=== PATIENT | female | born 1955 | race Caucasian/White ===

== ENCOUNTER 2021-09-08 00:17 | Inpatient (IN) | payer MEDICARE ==
--- NOTE | 2021-09-08 02:55 | ED ---
SOB HPI - General Chief Complaint: Shortness of Breath Stated Complaint: pneumonia Time Seen by Provider: 09/08/21 00:19 Source: patient, EMS Mode of arrival: EMS Limitations: no limitations - History of Present Illness Initial Comments: Aracelis a 66-year-old female history of oxygen-dependent COPD. Patient has had multiple hospitalizations out of the [facility] recently for COPD exacerbations. She was discharged on number 15th on high flow nasal cannula however she returned that evening with worsening shortness of breath, repeat labs revealed new leukocytosis and the patient was noted to have possible ALLERGIC skin. Patient was negative for COVID at that time. The patient recent cares been complicated by the fact that she is currently homeless, she's been prescribed home oxygen but has been living out of a vehicle for has been noncompliant with home oxygen - Related Data Allergies Allergy/AdvReac Type Severity Reaction Status Date / Time hydrocodone Allergy Nausea & Verified 09/08/21 00:38 Vomiting Review of Systems ROS Statement: Those systems with pertinent positive or pertinent negative responses have been documented in the HPI. ROS Other: All systems not noted in ROS Statement are negative. Past Medical History Past Medical History: COPD History of Any Multi-Drug Resistant Organisms: None Reported Additional Past Surgical History / Comment(s): bowel surgery Past Psychological History: No Psychological Hx Reported Smoking Status: Current every day smoker Past Alcohol Use History: None Reported Past Drug Use History: Marijuana General Exam - General Exam Comments Initial Comments: Physical Exam GENERAL: Appears older than stated age HENT: Normocephalic, Atraumatic. EYES: PERRL, EOMI PULMONARY: Tachypnea CARDIOVASCULAR: RRR ABDOMEN: Soft and nontender with normal bowel sounds. SKIN: Skin is clear with no lesions or rashes and otherwise unremarkable. : Deferred NEUROLOGIC: Patient is alert and oriented x3. Moving all extremities spontaneously MUSCULOSKELETAL: Normal extremities with adequate strength and full range of motion. No lower extremity swelling or edema. No calf tenderness. PSYCHIATRIC: Normal psychiatric evaluation. Limitations: no limitations Course Vital Signs 09/08/21 09/08/21 00:22 03:56 Temperature 98.1 F Pulse Rate 90 75 Respiratory 20 19 Rate Blood Pressure 144/91 126/63 O2 Sat by Pulse 91 L 93 L Oximetry Medical Decision Making - Medical Decision Making Patient care was discussed with transferring physician and history was obtained from patient upon arrival Patient with a history of oxygen-dependent COPD multiple hospitalizations recently, currently on high flow oxygen 10 L for COPD exacerbation with CT evidence of pneumonia, patient received vancomycin and cefepime outpatient setting, She transferred to this facility for evaluation by pulmonology, patient care was discussed with Sheryl Ortega NP the [facility] physician group who accepts the admission, admission orders were placed Disposition Clinical Impression: Pneumonia, Chronic hypercapnic respiratory failure, COPD (chronic obstructive pulmonary disease), Leukocytosis Disposition: ADMITTED IP TO THIS HOSP Condition: Serious Is patient prescribed a controlled substance at d/c from ED?: No Referrals: Don Mendoza DO [Primary Care Provider] - 1-2 days
[2021-09-08] MEDS ORDERED: ACETAMINOPHEN TAB 325 MG TAB PO PRN (04:36)
[2021-09-08] MEDS ORDERED: IBUPROFEN 400 MG TAB PO PRN (04:36)
[2021-09-08] MEDS ORDERED: NALOXONE 0.4 MG/ML 1 ML VIAL IV PRN (04:36)
[2021-09-08] MEDS ORDERED: MELATONIN 3 MG TABLET PO PRN (08:47)
--- NOTE | 2021-09-08 08:57 | P.HPIM ---
History of Present Illness This is a pleasant 66 years old female with past medical history of COPD not on home medication. Presents because of dyspnea [facility]. She is on 10 L oxygen via high flow nasal cannula when transferred. PCP is Dr. Mendoza Patient with a history of oxygen-dependent COPD multiple hospitalizations recently, currently on high flow oxygen 10 L for COPD exacerbation with CT evidence of pneumonia, patient received antibiotic in outpatient setting, homeless, she's been prescribed home oxygen but has been living out of a vehicle for has been noncompliant with home oxygen Patient is lying in bed does not look in respiratory distress but she is on high flow oxygen at 2 L/m, no significant tachypnea while at rest, she is coughing with occasional phlegm. She complains earlier from central chest tenderness but now she is chest pain-free No diarrhea abdominal pain or vomiting. No urinary complaints. No headache or weakness or dizziness. She has good appetite She used to smoke half pack per day and she just quit recently. She denies alcohol. 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 As per transfer paper patient was discharge from [facility] to [facility] but she sent back to the emergency room of [facility] at the same day for worsening dyspnea. As per [facility] patient saturates 86-88% on room air. She was saturating well on 6 L but she was transitioned to high flow nasal cannula due to increased work of breathing and oxygen requirements. at [facility] she received IV Solu-Medrol, magnesium, February of this and albuterol treatment patient was showing mild improvement and she was doing well on 6 L NC but was transitioned to high flow nasal cannula due to increased work of breathing and oxygen requirements per records. to CTA of the chest done on 09/07/2021 report states no acute PE, diffuse tree-in-bud pattern opacity with left lower lobe consolidation Also patient was given IV Levaquin and Zithromax. Patient was admitted with COPD exacerbation and hypoxia and later on transferred to [facility] Currently vitals stable at course except for hypoxia she is on 10 L high flow nasal cannula was saturating 93% A EKG showed normal sinus rhythm at [address]-T changes, and QTC 413 In reviewing [facility] transferring paper: Labs showed sodium 130, potassium 4.8, creatinine 0.6, liver enzymes did not 6 difficult currently elevated, AST normal 21 and ALT slightly up at 44, total bilirubin 0.4, albumin 3.0. GFR is 1:30. Troponin less than 0.012. Lactic acid 2.1, magnesium 2.1. WBC 9.7, hemoglobin 11.3, platelets 275. D-dimer slightly elevated 1.2. However repeat WBC from 09/07 increased to 26.4. Hemoglobin 12.7 INR is 0.9 ABG showing pH of 7.5, the CO2 50 which is within the reference range and high P O2 at 67.9. Which was done and 6 L nasal cannula Review of Systems CONSTITUTIONAL: No fever, no malaise, no fatigue. HEENT: No recent visual problems or hearing problems. Denied any sore throat. CARDIOVASCULAR: No orthopnea, PND, no palpitations, no syncope. PULMONARY: No chest wall tenderness, no hemoptysis. GASTROINTESTINAL: No diarrhea, no nausea, no vomiting, no abdominal pain. Normoactive bowel sounds. NEUROLOGICAL: No headaches, no weakness, no numbness. HEMATOLOGICAL: Denies any bleeding or petechiae. GENITOURINARY: Denies any burning micturition, frequency, or urgency. MUSCULOSKELETAL/RHEUMATOLOGICAL: Denies any joint pain, swelling, or any muscle pain. ENDOCRINE: Denies any polyuria or polydipsia. Past Medical History Past Medical History: COPD History of Any Multi-Drug Resistant Organisms: None Reported Additional Past Surgical History / Comment(s): bowel surgery Past Anesthesia/Blood Transfusion Reactions: No Reported Reaction Past Psychological History: No Psychological Hx Reported Smoking Status: Former smoker Past Alcohol Use History: None Reported Past Drug Use History: Marijuana Medications and Allergies Allergies Allergy/AdvReac Type Severity Reaction Status Date / Time hydrocodone Allergy Nausea & Verified 09/08/21 00:38 Vomiting Physical Exam Vitals: Vital Signs Temp Pulse Resp BP Pulse Ox 09/08/21 03:56 75 19 126/63 93 L 09/08/21 00:22 98.1 F 90 20 144/91 91 L Intake and Output 09/07/21 09/07/21 09/08/21 14:59 22:59 06:59 Other: Weight 54.431 kg -GENERAL: The patient is alert and oriented x3, not in any acute distress. thin built HEENT: Pupils are round and equally reacting to light. EOMI. No scleral icterus. No conjunctival pallor. Normocephalic, atraumatic. No pharyngeal erythema. No thyromegaly. CARDIOVASCULAR: S1 and S2 present. No murmurs, rubs, or gallops. -PULMONARY: Chest is clear to auscultation, B/L scattered wheezing with decreased air entry. ABDOMEN: Soft, nontender, nondistended, normoactive bowel sounds. No palpable organomegaly. MUSCULOSKELETAL: No joint swelling or deformity. EXTREMITIES: No cyanosis, clubbing, or pedal edema. NEUROLOGICAL: Gross neurological examination did not reveal any focal deficits. SKIN: No rashes. No petechiae Thrombosis Risk Factor Assmnt - Choose All That Apply Any of the Below Risk Factors Present?: Yes Each Factor Represents 1 point: Abnormal pulmonary function (COPD) Other Risk Factors: Yes Each Risk Factor Represents 2 Points: Age 61-74 years Thrombosis Risk Factor Assessment Total Risk Factor Score: 3 Thrombosis Risk Factor Assessment Level: Moderate Risk Assessment and Plan Assessment: Left lower lobe hospital-acquired pneumonia with diffuse tree-in-bud pattern Acute COPD exacerbation Acute hypoxic respiratory failure [id number] protein calorie malnutrition. Substance abuse with marijuana Plan: This is a pleasant 66 years old female who presents with COPD, pneumonia Continue with IV Solu-Medrol Start Zosyn Sent sputum culture of possible Pulmonary consult Biological Aide consult check procalcitonin and BNP Labs and medication were reviewed.. Continue same treatment. Continue with symptomatic treatment. Resume home medication. Monitor lytes and vitals. DVT and GI prophylaxis. Further recommendations depends on the clinical course of the patient DVT prophylaxis: Subcutaneous heparin GI Prophylaxis: Pepcid PT/OT: Pending Prognosis is guarded
[2021-09-08 10:15] LABS: Basophils % (A) 0 %; Eosinophils % (A) 0 %; HCT 36.4 % (34.0-46.0); HGB 11.3 gm/dL (11.4-16.0); Hypochromasia Slight; Lymphocytes # (A) 0.6 k/uL (1.0-4.8); Lymphocytes % (A) 2 %; MCH 29.3 pg (25.0-35.0); MCHC 31.1 g/dL (31.0-37.0); MCV 94.4 fL (80.0-100.0); Mean Platelet Volume 7.3; Monocytes # (A) 0.6 k/uL (0-1.0); Monocytes % (A) 2 %; Neutrophils # (A) 25.6 k/uL (1.3-7.7); Neutrophils % (A) 95 %; Platelet Count 308 k/uL (150-450); RBC 3.86 m/uL (3.80-5.40); RDW 12.9 % (11.5-15.5)
[2021-09-08 10:22] LABS: ALT 35 U/L (4-34); AST 22 U/L (14-36); African American GFR (CKD) >90 (>60 ml/min/1.73 sqM); Albumin 2.6 g/dL (3.5-5.0); Albumin/Globulin Ratio 1.1; Alkaline Phosphatase 83 U/L (38-126); Blood Urea Nitrogen 20 mg/dL (7-17); Calcium 8.5 mg/dL (8.4-10.2); Chloride 85 mmol/L (98-107); Globulin 2.3 g/dL; Glucose 93 mg/dL (74-99); Magnesium 2.2 mg/dL (1.6-2.3); Non-African American GFR(CKD) >90 (>60 ml/min/1.73 sqM); Potassium 4.7 mmol/L (3.5-5.1); Sodium 129 mmol/L (137-145); Total Bilirubin 0.3 mg/dL (0.2-1.3); Total Protein 4.9 g/dL (6.3-8.2)
[2021-09-08 10:28] LABS: Anion Gap 0 mmol/L
[2021-09-08 10:33] LABS: Carbon Dioxide 44 mmol/L (22-30)
[2021-09-08] MEDS: FAMOTIDINE 20 MG/2 ML VIAL IV SCH ×2 (10:51→21:28)
[2021-09-08] MEDS: HEPARIN SODIUM,PORCINE/PF 5,000 UNIT/0.5 ML SYRINGE SQ SCH ×2 (10:51→21:28)
--- NOTE | 2021-09-08 10:52 | CDI ---
Documentation Clarification Form Date: 09/08/2021 10:34:24 AM From: Jammie Balderas RN CCDS Admit Date: 09/08/2021 04:36:00 AM Patient Name: Aracelis Estrada Visit Number: [id number] Discharge Date: ATTENTION: The Clinical Documentation Specialists (CDI) and [facility] Coding Staff appreciate your assistance in clarifying documentation. Please respond to the clarification below the line at the bottom and electronically sign. The CDI & [facility] Coding staff will review the response and follow-up if needed. Please note: Queries are made part of the Legal Health Record. If you have any questions, please contact the author of this message via ITS. Dr. [facility] acquired pneumonia is documented 09/08, H&P. Additional clarification regarding the type of pneumonia is requested. History/Risk Factors: 66-year-old female presents to the ED as a transfer from [facility] for worsening oxygen needs and increased work of breathing. Medical history: COPD, Non- compliant, Multiple hospitalizations recently and oxygen dependent. 09/08, H&P. Clinical Indicators: 09/08, H&P: Left lower lobe hospital acquired pneumonia with diffuse tree in bud pattern. WBC 09/07, H&P: 26.4, CTA 09/07 H&P: No acute PE, diffuse tree in bud pattern opacity with left lower lobe consolidation. Lung/Breathing assessment 09/08, H&P: Chest is clear to auscultation, B/L scattered wheezing with decreased air entry. Treatment: 09/08 Solumedrol 40mg IV Q8H Antibiotics: Levaquin IV AND Zithromax at [facility] (09/08, H&P), 09/08 Zosyn 3.375mg IVPB Q8H O2: 09/08 10L High Flow Oxygen. Breathing Tx: 09/08 Duoneb 0.5mg -3mg/ 3ml soln RT QID PRN; Symbicort 160-4.5 Mcg Inhaler 2puff inhalation RT BID. Please clarify the type of pneumonia, if known: [ ] Gram Negative Bacterial Pneumonia [ ] Bacterial Pneumonia, specify causal organism (if known) [ ] Other, please specify [ ] Unable to determine Suspected gram-negative pneumonia (Template Last Revised: November 2020) MTDD
[2021-09-08 11:31] LABS: Glucose,Whole Blood 81 mg/dL (75-99)
[2021-09-08] MEDS: INSULIN ASPART (NovoLOG) 100 UNIT/ML VIAL SQ SCH ×3 (11:52→21:28)
[2021-09-08 11:57] VITALS: BMI 17.7
[2021-09-08] MEDS: methylPREDNISolone SOD SUCCI 40 MG/ML 1 ML VIAL IV SCH ×2 (12:03→17:03)
[2021-09-08] MEDS ORDERED: INSULIN ASPART (NovoLOG) 100 UNIT/ML VIAL SQ SCH (12:30)
[2021-09-08] MEDS: IPRATROPIUM-ALBUTEROL 3 ML NEB INHALATION PRN ×2 (16:11→20:23)
[2021-09-08 16:35] LABS: Glucose,Whole Blood 136 mg/dL (75-99)
[2021-09-08] MEDS: PIPERACILLIN-TAZOBACTAM 3.375 GM in SODIUM CHLORIDE 0.9% 100 ML IVPB SCH (17:02)
[2021-09-08 20:13] LABS: Glucose,Whole Blood 155 mg/dL (75-99)
[2021-09-08] MEDS: SYMBICORT 160-4.5 MCG INHALER INHALATION SCH (20:23)
[2021-09-08] MEDS ORDERED: INSULIN DETEMIR (LEVEMIR) 100 UNIT/ML SYR SQ SCH (21:00)
[2021-09-09] MEDS: methylPREDNISolone SOD SUCCI 40 MG/ML 1 ML VIAL IV SCH ×2 (00:30→08:53)
[2021-09-09] MEDS: PIPERACILLIN-TAZOBACTAM 3.375 GM in SODIUM CHLORIDE 0.9% 100 ML IVPB SCH ×3 (00:30→17:51)
[2021-09-09] MEDS: SODIUM CHLORIDE 0.9% 1,000 ML IV SCH ×2 (00:31→20:53)
[2021-09-09 07:05] LABS: Glucose,Whole Blood 119 mg/dL (75-99)
[2021-09-09] MEDS: SYMBICORT 160-4.5 MCG INHALER INHALATION SCH (07:47)
[2021-09-09] MEDS: INSULIN ASPART (NovoLOG) 100 UNIT/ML VIAL SQ SCH ×4 (08:12→20:45)
[2021-09-09] MEDS: HEPARIN SODIUM,PORCINE/PF 5,000 UNIT/0.5 ML SYRINGE SQ SCH ×2 (08:53→20:46)
[2021-09-09] MEDS: FAMOTIDINE 20 MG/2 ML VIAL IV SCH ×2 (08:53→20:45)
[2021-09-09 09:14] LABS: Basophils % (A) 0 %; Eosinophils % (A) 0 %; HCT 40.2 % (34.0-46.0); HGB 12.4 gm/dL (11.4-16.0); Hypochromasia Moderate; Lymphocytes # (A) 0.3 k/uL (1.0-4.8); Lymphocytes % (A) 2 %; MCH 29.8 pg (25.0-35.0); MCHC 30.9 g/dL (31.0-37.0); MCV 96.6 fL (80.0-100.0); Mean Platelet Volume 7.3; Monocytes # (A) 0.4 k/uL (0-1.0); Monocytes % (A) 2 %; Neutrophils % (A) 96 %; Platelet Count 346 k/uL (150-450); RBC 4.17 m/uL (3.80-5.40); RDW 13.5 % (11.5-15.5); WBC 18.8 k/uL (3.8-10.6)
[2021-09-09 09:21] LABS: African American GFR (CKD) >90 (>60 ml/min/1.73 sqM); Blood Urea Nitrogen 23 mg/dL (7-17); Calcium 9.1 mg/dL (8.4-10.2); Chloride 87 mmol/L (98-107); Glucose 155 mg/dL (74-99); Magnesium 2.3 mg/dL (1.6-2.3); Non-African American GFR(CKD) >90 (>60 ml/min/1.73 sqM); Potassium 4.6 mmol/L (3.5-5.1); Sodium 130 mmol/L (137-145)
[2021-09-09 09:27] LABS: Anion Gap 5 mmol/L
[2021-09-09 09:32] LABS: Carbon Dioxide 38 mmol/L (22-30)
[2021-09-09] MEDS: IPRATROPIUM-ALBUTEROL 3 ML NEB INHALATION PRN ×3 (11:49→21:05)
[2021-09-09 11:52] LABS: Glucose,Whole Blood 126 mg/dL (75-99)
[2021-09-09] MEDS: methylPREDNISolone SOD SUCCI 125 MG/2 ML VIAL IV SCH ×2 (12:38→17:50)
--- NOTE | 2021-09-09 14:45 | P.CNPUL ---
History of Present Illness Consult date: 09/09/21 Requesting physician: Nikita Llamas Reason for consult: dyspnea, cough, COPD, hypoxemia, pneumonia, abnormal CXR/CT Chief complaint: Shortness of breath. History of present illness: Pulmonary/critical care consult dated 09/09/2021. 66-year-old female, with a history of COPD. The patient's been smoking for more than 50 years at about a pack a day. She also smokes marijuana from time to time, and in the past has a crack. The patient tells me that she has been hospitalized at [facility] up in [facility], for about a week or so. They ended up shifting her down here, because she was not really improving. The patient is currently on 10 L high flow O2. The patient is receiving antibiotic. Her primary care physician is Dr. Mendoza. The patient states that her only medical problem is that of COPD. She is not a particularly good historian. She states that when the weather changed, that is when her lung disease became much more active. Her white count is 18.8, hemoglobin 12.4, hematocrit 40.2, and platelet count 346,000. Sodium 130, potassium 4.6, chloride 87, CO2 38, anion gap 5, BUN 23, and creatinine 0.50. Her pro- calcitonin level is 0.12. There is no chest x-ray on this patient. The patient is homeless. She apparently lives out of her van. Review of Systems REVIEW OF SYSTEMS: CONSTITUTIONAL: [Negative.] NEUROLOGIC: [ Negative.] HEENT: [ Negative.] CARDIAC: [Negative.] PULMONARY: Shortness of breath, cough, chest congestion. GI: [Negative.] : [Negative.] RHEUMATOLOGIC: [ Negative.] IMMUNOLOGIC: [ Negative.] ENDOCRINE: [Negative. ] DERMATOLOGIC: [Negative.] Past Medical History Past Medical History: COPD History of Any Multi-Drug Resistant Organisms: None Reported Additional Past Surgical History / Comment(s): bowel surgery Past Anesthesia/Blood Transfusion Reactions: No Reported Reaction Past Psychological History: No Psychological Hx Reported Smoking Status: Former smoker Past Alcohol Use History: None Reported Past Drug Use History: Marijuana Medications and Allergies Home Medications Medication Instructions Recorded Confirmed Type Albuterol Sulfate [Albuterol 2 puff PO RT-Q4H PRN 09/08/21 09/08/21 History Sulfate Hfa] Budesonide-Formot 160-4.5 Mcg 2 puff INHALATION RT-BID 09/08/21 09/08/21 History [Symbicort 160-4.5 Mcg Inhaler] Levothyroxine Sodium [Synthroid] 25 mcg PO DAILY 09/08/21 09/08/21 History Losartan [Cozaar] 50 mg PO DAILY 09/08/21 09/08/21 History Allergies Allergy/AdvReac Type Severity Reaction Status Date / Time hydrocodone AdvReac Nausea & Verified 09/08/21 09:03 Vomiting Physical Exam Osteopathic Statement: *. No significant issues noted on an osteopathic structural exam other than those noted in the History and Physical/Consult. Vitals: Vital Signs Temp Pulse Pulse Resp BP Pulse Ox 09/09/21 12:00 88 09/09/21 11:50 84 09/09/21 08:00 84 09/09/21 07:53 95 09/09/21 07:47 84 09/09/21 07:12 98.1 F 85 18 130/68 96 09/09/21 01:05 97.6 F 77 15 136/71 98 09/08/21 20:51 88 09/08/21 20:42 88 09/08/21 19:34 98.0 F 84 16 155/73 94 L 09/08/21 19:23 84 16 09/08/21 16:21 88 09/08/21 16:13 84 Intake and Output 09/08/21 09/09/21 09/09/21 22:59 06:59 14:59 Intake Total 875 Balance 875 Intake: Intake, IV Titration 375 Amount Piperacillin-Tazobactam 3 375 .375 gm In Sodium Chloride 0.9% 100 ml @ 25 mls/hr IVPB Q8HR [facility] Rx# :[id number] Oral 500 Other: Voiding Method Bedside Commode # Voids 1 2 # Bowel Movements 1 1 Weight 63.1 kg Mild respiratory distress, oriented 3. The patient's saturations are 95% on 10 L high flow nasal O2. HEENT examination is grossly unremarkable. Neck supple. Full range of motion. No adenopathy thyromegaly or neck vein distention. Cardiovascular examination reveals regular rhythm rate. S1-S2 normal. No S3 or S4. No discernible murmur noted. Heart rate is 88 bpm. Heart sounds are distant. Lungs reveal inspiratory and expiratory wheezes and rhonchi. Breath sounds are equal bilaterally. No crackles. There is prolongation on forced maneuver. Adventitious lung sounds are more prominent on forced maneuver. Abdomen soft bowel sounds are heard. No masses or tenderness. Extremities are intact. No cyanosis clubbing or edema. Skin is without rash or lesion. Neurologic examination is brief but nonfocal. Results - Laboratory Findings CBC and BMP: 09/09/21 08:47 09/09/21 07:56 Abnormal lab findings: Abnormal Labs 09/08/21 09/08/21 09/08/21 09:55 09:55 09:55 WBC 27.0 H Hgb 11.3 L MCHC Neutrophils # 25.6 H Lymphocytes # 0.6 L Sodium 129 L Chloride 85 L Carbon Dioxide 44 H* BUN 20 H Creatinine Glucose POC Glucose (mg/dL) ALT 35 H Total Protein 4.9 L Albumin 2.6 L Procalcitonin 0.12 H 09/08/21 09/08/21 09/09/21 16:34 20:11 07:05 WBC Hgb MCHC Neutrophils # Lymphocytes # Sodium Chloride Carbon Dioxide BUN Creatinine Glucose POC Glucose (mg/dL) 136 H 155 H 119 H ALT Total Protein Albumin Procalcitonin 09/09/21 09/09/21 09/09/21 07:56 08:47 11:50 WBC 18.8 H Hgb MCHC 30.9 L Neutrophils # 18.0 H Lymphocytes # 0.3 L Sodium 130 L Chloride 87 L Carbon Dioxide 38 H BUN 23 H Creatinine 0.50 L Glucose 155 H POC Glucose (mg/dL) 126 H ALT Total Protein Albumin Procalcitonin Assessment and Plan Assessment: Acute exacerbation of COPD. Ongoing tobacco use with nicotine addiction. Plan: Plan dated 09/09/2021. The labs are reviewed. I will order a chest x-ray. The medications are reviewed. We'll make sure, that the patient's on appropriate medications. This will include DuoNeb, 4 times a day and when necessary, 20 g, twice a day, and Solu-Medrol. Additional recommendations and suggestions are forthcoming. The pro-calcitonin level is relatively low. We will await the chest x-ray. Time with Patient: Greater than 30
--- NOTE | 2021-09-09 15:26 | XR ---
EXAMINATION TYPE: XR chest 2V DATE OF EXAM: 09/09/2021 COMPARISON: Outside CT from 2 days ago. HISTORY: COPD and pneumonia. TECHNIQUE: Frontal and lateral views of the chest are obtained. FINDINGS: The osseous structures remain demineralized. Cardiac silhouette size stable and within nor mal limits with atherosclerotic change in thoracic aorta redemonstrated. Chronic emphysematous change with bilateral reticulonodular increased opacities greatest in the lower lungs redemonstrated. Stabl e consolidation and/or atelectasis in the left lung base posteriorly. IMPRESSION: Chronic emphysematous change with increased reticulonodular opacities bilaterally greate st in the lower lungs with posterior basilar consolidation all redemonstrated. Correlate clinically f or atypical infectious process.
[2021-09-09 16:49] LABS: Glucose,Whole Blood 222 mg/dL (75-99)
[2021-09-09 20:08] LABS: Glucose,Whole Blood 157 mg/dL (75-99)
[2021-09-09] MEDS: BUDESONIDE 1 MG/2 ML NEBU INHALATION SCH (21:05)
[2021-09-09] MEDS: FORMOTEROL FUMARATE 20 MCG/2 ML NEBU INHALATION SCH (21:05)
[2021-09-10] MEDS: methylPREDNISolone SOD SUCCI 125 MG/2 ML VIAL IV SCH ×4 (00:39→17:56)
[2021-09-10] MEDS: PIPERACILLIN-TAZOBACTAM 3.375 GM in SODIUM CHLORIDE 0.9% 100 ML IVPB SCH (00:39)
[2021-09-10] MEDS: SODIUM CHLORIDE 0.9% 1,000 ML IV SCH ×3 (02:15→17:56)
--- NOTE | 2021-09-10 05:52 | P.PN ---
Subjective This is a pleasant 66 years old female with past medical history of COPD not on home medication. Presents because of dyspnea [facility]. She is on 10 L oxygen via high flow nasal cannula when transferred. PCP is Dr. Mendoza Patient with a history of oxygen-dependent COPD multiple hospitalizations recently, currently on high flow oxygen 10 L for COPD exacerbation with CT evidence of pneumonia, patient received antibiotic in outpatient setting, homeless, she's been prescribed home oxygen but has been living out of a vehicle for has been noncompliant with home oxygen Patient is lying in bed does not look in respiratory distress but she is on high flow oxygen at 2 L/m, no significant tachypnea while at rest, she is coughing with occasional phlegm. She complains earlier from central chest tenderness but now she is chest pain-free No diarrhea abdominal pain or vomiting. No urinary complaints. No headache or weakness or dizziness. She has good appetite She used to smoke half pack per day and she just quit recently. She denies alcohol. She uses marijuana as well Patient states that she was not on oxygen at home and her problem started sometime after Thanksgiving and she is not on home oxygen originally, she does not follow up with behavior therapist but she stated that she has history of COPD. As per transfer paper patient was discharge from [facility] to [facility] but she sent back to the emergency room of [place] at the same day for worsening dyspnea. As per [place] patient saturates 86-88% on room air. She was saturating well on 6 L but she was transitioned to high flow nasal cannula due to increased work of breathing and oxygen requirements. at [facility] she received IV Solu-Medrol, magnesium, February of this and albuterol treatment patient was showing mild improvement and she was doing well on 6 L NC but was transitioned to high flow nasal cannula due to increased work of breathing and oxygen requirements per records. to CTA of the chest done on 09/07/2021 report states no acute PE, diffuse tree-in-bud pattern opacity with left lower lobe consolidation Also patient was given IV Levaquin and Zithromax. Patient was admitted with COPD exacerbation and hypoxia and later on transferred to [facility] Currently vitals stable at course except for hypoxia she is on 10 L high flow nasal cannula was saturating 93% A EKG showed normal sinus rhythm at [address]-T changes, and QTC 413 In reviewing [place] transferring paper: Labs showed sodium 130, potassium 4.8, creatinine 0.6, liver enzymes did not 6 difficult currently elevated, AST normal 21 and ALT slightly up at 44, total bilirubin 0.4, albumin 3.0. GFR is 1:30. Troponin less than 0.012. Lactic acid 2.1, magnesium 2.1. WBC 9.7, hemoglobin 11.3, platelets 275. D-dimer slightly elevated 1.2. However repeat WBC from 09/07 increased to 26.4. Hemoglobin 12.7 INR is 0.9 ABG showing pH of 7.5, the CO2 50 which is within the reference range and high P O2 at 67.9. Which was done and 6 L nasal cannula 09/09/2021 Chin starts showing slight improvement in her breathing however she still tachypneic and dyspneic while she is sitting. She still on 10 L/m of oxygen via nasal cannula Chest x-ray: Chronic emphysematous change with increased reticulonodular opacity bilaterally greatest in the lower lungs with posterior basilar consolidation R redemonstrated. Correlate clinically for atypical infectious process by radiologist continue with IV Solu-Medrol and decrease dose to 60 mg Change antibiotics from Zosyn and to Zithromax as repeat chest x-ray showing possible atypical pneumonia. And broughtcalcitonin is only 0.12 which is only minimally elevated. ProBNP is 591 Objective - Vital Signs Vital signs: Vital Signs Temp 98.1 F 09/09/21 07:12 Pulse 88 09/09/21 12:00 Resp 18 09/09/21 07:12 BP 130/68 09/09/21 07:12 Pulse Ox 95 09/09/21 07:53 Intake & Output 09/08/21 09/09/21 09/09/21 18:59 06:59 18:59 Intake Total 875 Balance 875 Weight 54.431 kg 63.1 kg Intake: Intake, IV Titration 375 Amount Piperacillin-Tazobactam 3 375 .375 gm In Sodium Chloride 0.9% 100 ml @ 25 mls/hr IVPB Q8HR [facility] Rx# :[id number] Oral 500 Other: Voiding Method Bedside Commode # Voids 5 2 # Bowel Movements 1 - Exam GENERAL: The patient is alert and oriented x3, not in any acute distress. Well developed, well nourished. HEENT: Pupils are round and equally reacting to light. EOMI. No scleral icterus. No conjunctival pallor. Normocephalic, atraumatic. No pharyngeal erythema. No thyromegaly. CARDIOVASCULAR: S1 and S2 present. No murmurs, rubs, or gallops. -PULMONARY: Decreased air entry in both sides with scattered bilateral wheezing ABDOMEN: Soft, nontender, nondistended, normoactive bowel sounds. No palpable organomegaly. MUSCULOSKELETAL: No joint swelling or deformity. EXTREMITIES: No cyanosis, clubbing, or pedal edema. NEUROLOGICAL: Gross neurological examination did not reveal any focal deficits. SKIN: No rashes. no petechiae. - Labs CBC & Chem 7: 09/09/21 08:47 09/09/21 07:56 Labs: Abnormal Lab Results - Last 24 Hours (Table) 09/08/21 09/08/21 09/08/21 Range/Units 09:55 16:34 20:11 WBC (3.8-10.6) k/uL MCHC (31.0-37.0) g/dL Neutrophils # (1.3-7.7) k/uL Lymphocytes # (1.0-4.8) k/uL Sodium (137-145) mmol/L Chloride (98-107) mmol/L Carbon Dioxide (22-30) mmol/L BUN (7-17) mg/dL Creatinine (0.52-1.04) mg/dL Glucose (74-99) mg/dL POC Glucose (mg/dL) 136 H 155 H (75-99) mg/dL Procalcitonin 0.12 H (0.02-0.09) ng/mL 09/09/21 09/09/21 09/09/21 Range/Units 07:05 07:56 08:47 WBC 18.8 H (3.8-10.6) k/uL MCHC 30.9 L (31.0-37.0) g/dL Neutrophils # 18.0 H (1.3-7.7) k/uL Lymphocytes # 0.3 L (1.0-4.8) k/uL Sodium 130 L (137-145) mmol/L Chloride 87 L (98-107) mmol/L Carbon Dioxide 38 H (22-30) mmol/L BUN 23 H (7-17) mg/dL Creatinine 0.50 L (0.52-1.04) mg/dL Glucose 155 H (74-99) mg/dL POC Glucose (mg/dL) 119 H (75-99) mg/dL Procalcitonin (0.02-0.09) ng/mL 09/09/21 Range/Units 11:50 WBC (3.8-10.6) k/uL MCHC (31.0-37.0) g/dL Neutrophils # (1.3-7.7) k/uL Lymphocytes # (1.0-4.8) k/uL Sodium (137-145) mmol/L Chloride (98-107) mmol/L Carbon Dioxide (22-30) mmol/L BUN (7-17) mg/dL Creatinine (0.52-1.04) mg/dL Glucose (74-99) mg/dL POC Glucose (mg/dL) 126 H (75-99) mg/dL Procalcitonin (0.02-0.09) ng/mL Assessment and Plan Assessment: Acute COPD exacerbation Possible Atypical pneumonia Acute hypoxic respiratory failure Mild protein calorie malnutrition. Substance abuse with marijuana Plan: This is a pleasant 66 years old female who presents with COPD, pneumonia Continue with IV Solu-Medrol Change Zosyn to Zithromax Follow-up sputum culture of possible Pulmonary consult Head Stock Operator consult Labs and medication were reviewed.. Continue same treatment. Continue with symptomatic treatment. Resume home medication. Monitor lytes and vitals. DVT and GI prophylaxis. Further recommendations depends on the clinical course of the patient DVT prophylaxis: Subcutaneous heparin GI Prophylaxis: Pepcid PT/OT: Pending Prognosis is guarded
[2021-09-10 07:59] LABS: Glucose,Whole Blood 167 mg/dL (75-99)
[2021-09-10] MEDS: AZITHROMYCIN 500 MG in SODIUM CHLORIDE 0.9% 250 ML IVPB SCH (08:06)
[2021-09-10] MEDS: HEPARIN SODIUM,PORCINE/PF 5,000 UNIT/0.5 ML SYRINGE SQ SCH ×2 (08:06→21:34)
[2021-09-10] MEDS: INSULIN ASPART (NovoLOG) 100 UNIT/ML VIAL SQ SCH ×4 (08:06→21:35)
[2021-09-10] MEDS: BUDESONIDE 1 MG/2 ML NEBU INHALATION SCH ×2 (09:04→20:47)
[2021-09-10] MEDS: IPRATROPIUM-ALBUTEROL 3 ML NEB INHALATION PRN ×4 (09:04→20:47)
[2021-09-10] MEDS: FORMOTEROL FUMARATE 20 MCG/2 ML NEBU INHALATION SCH ×2 (09:04→20:47)
[2021-09-10] MEDS: FAMOTIDINE 20 MG/2 ML VIAL IV SCH (10:39)
[2021-09-10] MEDS ORDERED: ALPRAZolam 0.5 MG TAB PO PRN (11:40)
--- NOTE | 2021-09-10 16:30 | P.PN ---
Subjective Progress Note Date: 09/10/21 Principal diagnosis: COPD exacerbation. Pulmonary/critical care consult dated 09/09/2021. 66-year-old female, with a history of COPD. The patient's been smoking for more than 50 years at about a pack a day. She also smokes marijuana from time to time, and in the past has a crack. The patient tells me that she has been hospitalized at [facility] in [facility], for about a week or so. They ended up shifting her down here, because she was not really improving. The patient is currently on 10 L high flow O2. The patient is receiving antibiotic. Her primary care physician is Dr. Mendoza. The patient states that her only medical problem is that of COPD. She is not a particularly good historian. She states that when the weather changed, that is when her lung disease became much more active. Her white count is 18.8, hemoglobin 12.4, hematocrit 40.2, and platelet count 346,000. Sodium 130, potassium 4.6, chloride 87, CO2 38, anion gap 5, BUN 23, and creatinine 0.50. Her pro- calcitonin level is 0.12. There is no chest x-ray on this patient. The patient is homeless. She apparently lives out of her van. Progress note dated 09/10/2021. 66-year-old female, seen yesterday in consultation. She has an extensive smoking history, who was admitted with a diagnosis of COPD exacerbation. She was producing hospitalized at [place], [place]. Currently, the patient is on saline at 75 mL an hour. She's getting oxygen via high flow nasal cannula at 10 L/m she is doing much better today. No new labs today other than a glucose of 167. She is currently on Pulmicort, formoterol, azithromycin, DuoNeb, and Solu-Medrol. Objective - Vital Signs Vital signs: Vital Signs Temp 98.4 F 09/10/21 14:00 Pulse 84 09/10/21 14:00 Resp 17 09/10/21 14:00 BP 137/79 09/10/21 14:00 Pulse Ox 94 L 09/10/21 14:00 Intake & Output 09/09/21 09/10/21 09/10/21 18:59 06:59 18:59 Intake Total 222 Balance 222 Weight 63.1 kg Intake: Oral 222 Other: Voiding Method Bedside Commode # Voids 2 2 # Bowel Movements 1 - Exam Mild respiratory distress, oriented 3. The patient's saturations are 94% on 10 L high flow nasal O2. HEENT examination is grossly unremarkable. Neck supple. Full range of motion. No adenopathy thyromegaly or neck vein dis tention. Cardiovascular examination reveals regular rhythm rate. S1-S2 normal. No S3 or S4. No discernible murmur noted. Heart rate is 84 bpm. Heart sounds are distant. Lungs reveal inspiratory and expiratory wheezes and rhonchi. Breath sounds are equal bilaterally. No crackles. There is prolongation on forced maneuver. Adventitious lung sounds are more prominent on forced maneuver. Abdomen soft bowel sounds are heard. No masses or tenderness. Extremities are intact. No cyanosis clubbing or edema. Skin is without rash or lesion. Neurologic examination is brief but nonfocal. - Labs CBC & Chem 7: 09/09/21 08:47 09/09/21 07:56 Labs: Abnormal Lab Results - Last 24 Hours (Table) 09/09/21 09/09/21 09/10/21 Range/Units 16:48 20:07 07:58 POC Glucose (mg/dL) 222 H 157 H 167 H (75-99) mg/dL Assessment and Plan Assessment: Acute exacerbation of COPD. Ongoing tobacco use with nicotine addiction. Plan: Plan dated 09/09/2021. The labs are reviewed. I will order a chest x-ray. The medications are reviewed. We'll make sure, that the patient's on appropriate medications. This will include DuoNeb, 4 times a day and when necessary, 20 g, twice a day, and Solu-Medrol. Additional recommendations and suggestions are forthcoming. The pro-calcitonin level is relatively low. We will await the chest x-ray. Plan dated 09/10/2021. The patient remains on corticosteroids, breathing treatments, and oral antib iotics. The patient is doing well. She feels much better. I forcefully, her oxygen requirements are still high at 10 L. She's also getting saline at 75 mL an hour. We will continue to follow make recommendations where appropriate. We do student financial services counselor her about the importance of smoking cessation. A nicotine patch might be helpful if she craves tobacco. The chest x-rays reviewed. Additional recommendations and suggestions are forthcoming. The chest x-ray shows chronic emphysematous changes, with some reticular nodular opacities at the lower lung saenz. I suspect most of the changes on chest x-ray are chronic. Time with Patient: Less than 30
[2021-09-10 16:44] LABS: Glucose,Whole Blood 146 mg/dL (75-99)
[2021-09-10] MEDS ORDERED: TEMAZEPAM 7.5 MG CAP PO SCH (21:00)
[2021-09-10 21:02] LABS: Glucose,Whole Blood 187 mg/dL (75-99)
[2021-09-10] MEDS: NICOTINE 14MG/24HR PATCH TRANSDERM SCH (21:28)
[2021-09-10] MEDS: FAMOTIDINE 20 MG TAB PO SCH (21:34)
--- NOTE | 2021-09-11 00:08 | P.PN ---
Subjective This is a pleasant 66 years old female with past medical history of COPD not on home medication. Presents because of dyspnea [facility]. She is on 10 L oxygen via high flow nasal cannula when transferred. PCP is Dr. Mendoza Patient with a history of oxygen-dependent COPD multiple hospitalizations recently, currently on high flow oxygen 10 L for COPD exacerbation with CT evidence of pneumonia, patient received antibiotic in outpatient setting, homeless, she's been prescribed home oxygen but has been living out of a vehicle for has been noncompliant with home oxygen Patient is lying in bed does not look in respiratory distress but she is on high flow oxygen at 2 L/m, no significant tachypnea while at rest, she is coughing with occasional phlegm. She complains earlier from central chest tenderness but now she is chest pain-free No diarrhea abdominal pain or vomiting. No urinary complaints. No headache or weakness or dizziness. She has good appetite She used to smoke half pack per day and she just quit recently. She denies alcohol. She uses marijuana as well Patient states that she was not on oxygen at home and her problem started sometime after Thanksgiving and she is not on home oxygen originally, she does not follow up with non morse intercept technician but she stated that she has history of COPD. As per transfer paper patient was discharge from [facility] to [facility] but she sent back to the emergency room of [place] at the same day for worsening dyspnea. As per [place] patient saturates 86-88% on room air. She was saturating well on 6 L but she was transitioned to high flow nasal cannula due to increased work of breathing and oxygen requirements. at [facility] she received IV Solu-Medrol, magnesium, February of this and albuterol treatment patient was showing mild improvement and she was doing well on 6 L NC but was transitioned to high flow nasal cannula due to increased work of breathing and oxygen requirements per records. to CTA of the chest done on 09/07/2021 report states no acute PE, diffuse tree-in-bud pattern opacity with left lower lobe consolidation Also patient was given IV Levaquin and Zithromax. Patient was admitted with COPD exacerbation and hypoxia and later on transferred to [facility] Currently vitals stable at course except for hypoxia she is on 10 L high flow nasal cannula was saturating 93% A EKG showed normal sinus rhythm at [address]-T changes, and QTC 413 In reviewing [place] transferring paper: Labs showed sodium 130, potassium 4.8, creatinine 0.6, liver enzymes did not 6 difficult currently elevated, AST normal 21 and ALT slightly up at 44, total bilirubin 0.4, albumin 3.0. GFR is 1:30. Troponin less than 0.012. Lactic acid 2.1, magnesium 2.1. WBC 9.7, hemoglobin 11.3, platelets 275. D-dimer slightly elevated 1.2. However repeat WBC from 09/07 increased to 26.4. Hemoglobin 12.7 INR is 0.9 ABG showing pH of 7.5, the CO2 50 which is within the reference range and high P O2 at 67.9. Which was done and 6 L nasal cannula 09/09/2021 Chin starts showing slight improvement in her breathing however she still tachypneic and dyspneic while she is sitting. She still on 10 L/m of oxygen via nasal cannula Chest x-ray: Chronic emphysematous change with increased reticulonodular opacity bilaterally greatest in the lower lungs with posterior basilar consolidation R redemonstrated. Correlate clinically for atypical infectious process by radiologist continue with IV Solu-Medrol and decrease dose to 60 mg Change antibiotics from Zosyn and to Zithromax as repeat chest x-ray showing possible atypical pneumonia. And broughtcalcitonin is only 0.12 which is only minimally elevated. ProBNP is 591 09/10/2021 Patient feels anxious today from her steroids although reports improvement in her breathing treatment. To some degree but she still wheezing and she still have limited air entry on both sides although improving. She still on the liter per minute of oxygen but saturation is in high 90s for example 97% so she might be able to be tapered down. No labs from today. However that she is hemodynamically stable. She remains on Solu-Medrol 60 mg and Zithromax. We will add Xanax to help her with anxiety Objective - Vital Signs Vital signs: Vital Signs Temp 97.7 F 09/10/21 08:00 Pulse 84 09/10/21 13:15 Resp 22 09/10/21 09:26 BP 152/94 09/10/21 08:00 Pulse Ox 94 L 09/10/21 08:00 Intake & Output 09/09/21 09/10/21 09/10/21 18:59 06:59 18:59 Intake Total 222 Balance 222 Weight 63.1 kg Intake: Oral 222 Other: Voiding Method Bedside Commode # Voids 2 2 # Bowel Movements 1 - Exam GENERAL: The patient is alert and oriented x3, not in any acute distress. Well developed, well nourished. HEENT: Pupils are round and equally reacting to light. EOMI. No scleral icterus. No conjunctival pallor. Normocephalic, atraumatic. No pharyngeal erythema. No thyromegaly. CARDIOVASCULAR: S1 and S2 present. No murmurs, rubs, or gallops. -PULMONARY: Decreased air entry in both sides with scattered bilateral wheezing ABDOMEN: Soft, nontender, nondistended, normoactive bowel sounds. No palpable organomegaly. MUSCULOSKELETAL: No joint swelling or deformity. EXTREMITIES: No cyanosis, clubbing, or pedal edema. NEUROLOGICAL: Gross neurological examination did not reveal any focal deficits. SKIN: No rashes. no petechiae. - Labs CBC & Chem 7: 09/09/21 08:47 09/09/21 07:56 Labs: Abnormal Lab Results - Last 24 Hours (Table) 09/09/21 09/09/21 09/10/21 Range/Units 16:48 20:07 07:58 POC Glucose (mg/dL) 222 H 157 H 167 H (75-99) mg/dL Assessment and Plan Assessment: Acute COPD exacerbation Possible Atypical pneumonia Acute hypoxic respiratory failure Mild protein calorie malnutrition. Substance abuse with marijuana Plan: This is a pleasant 66 years old female who presents with COPD, pneumonia Continue with IV Solu-Medrol Change Zosyn to Zithromax Follow-up sputum culture of possible Pulmonary consult Security Administrator consult Labs and medication were reviewed.. Continue same treatment. Continue with symptomatic treatment. Resume home medication. Monitor lytes and vitals. DVT and GI prophylaxis. Further recommendations depends on the clinical course of the patient DVT prophylaxis: Subcutaneous heparin GI Prophylaxis: Pepcid PT/OT: Pending Prognosis is guarded
[2021-09-11] MEDS: methylPREDNISolone SOD SUCCI 125 MG/2 ML VIAL IV SCH ×5 (00:20→23:53)
[2021-09-11 07:03] LABS: Glucose,Whole Blood 108 mg/dL (75-99)
[2021-09-11] MEDS: INSULIN ASPART (NovoLOG) 100 UNIT/ML VIAL SQ SCH ×4 (07:15→21:47)
[2021-09-11] MEDS: FAMOTIDINE 20 MG TAB PO SCH ×2 (08:06→21:46)
[2021-09-11] MEDS: AZITHROMYCIN 500 MG in SODIUM CHLORIDE 0.9% 250 ML IVPB SCH (08:06)
[2021-09-11] MEDS: NICOTINE 14MG/24HR PATCH TRANSDERM SCH (08:07)
[2021-09-11] MEDS: HEPARIN SODIUM,PORCINE/PF 5,000 UNIT/0.5 ML SYRINGE SQ SCH ×2 (08:07→21:46)
[2021-09-11] MEDS: FORMOTEROL FUMARATE 20 MCG/2 ML NEBU INHALATION SCH ×2 (08:53→21:08)
[2021-09-11] MEDS: BUDESONIDE 1 MG/2 ML NEBU INHALATION SCH ×2 (08:53→21:08)
[2021-09-11] MEDS: IPRATROPIUM-ALBUTEROL 3 ML NEB INHALATION PRN ×4 (08:54→21:08)
[2021-09-11 10:05] LABS: Basophils # (A) 0.05 X 10*3/uL (0.00-0.10); Basophils % (A) 0.3 %; Eosinophils # (A) 0 X 10*3/uL (0.04-0.35); Eosinophils % (A) 0 %; HCT 36.1 % (37.2-46.3); HGB 11.1 g/dL (12.0-15.0); Lymphocytes # (A) 0.27 X 10*3/uL (0.90-5.00); Lymphocytes % (A) 1.6 %; MCH 29.3 pg (27.0-32.0); MCHC 30.7 g/dL (32.0-37.0); MCV 95.3 fL (80.0-97.0); Mean Platelet Volume 10.1 fL (9.5-12.2); Monocytes # (A) 0.57 X 10*3/uL (0.20-1.00); Monocytes % (A) 3.4 %; Neutrophils # (A) 15.69 X 10*3/uL (1.80-7.70); Neutrophils % (A) 92.6 %; Platelet Count 313 X 10*3/uL (140-440); RBC 3.79 X 10*6/uL (4.10-5.20); RDW 13.7 % (11.5-14.5); WBC 16.93 X 10*3/uL (4.50-10.00)
[2021-09-11 10:53] LABS: African American GFR (CKD) 122.7 (60.0-200.0); Anion Gap 10.9 mmol/L (10.00-18.00); BUN/Creat Ratio 43.13 Ratio (12.00-20.00); Blood Urea Nitrogen 18.2 mg/dL (9.0-27.0); Carbon Dioxide 34.3 mmol/L (20.0-27.5); Non-African American GFR(CKD) 105.9 (60.0-200.0)
[2021-09-11 11:25] LABS: Glucose,Whole Blood 155 mg/dL (75-99)
--- NOTE | 2021-09-11 13:32 | P.PN ---
Subjective Progress Note Date: 09/11/21 Principal diagnosis: COPD exacerbation. Pulmonary/critical care consult dated 09/09/2021. 66-year-old female, with a history of COPD. The patient's been smoking for more than 50 years at about a pack a day. She also smokes marijuana from time to time, and in the past has a crack. The patient tells me that she has been hospitalized at [facility], for about a week or so. They ended up shifting her down here, because she was not really improving. The patient is currently on 10 L high flow O2. The patient is receiving antibiotic. Her primary care physician is Dr. Mendoza. The patient states that her only medical problem is that of COPD. She is not a particularly good historian. She states that when the weather changed, that is when her lung disease became much more active. Her white count is 18.8, hemoglobin 12.4, hematocrit 40.2, and platelet count 346,000. Sodium 130, potassium 4.6, chloride 87, CO2 38, anion gap 5, BUN 23, and creatinine 0.50. Her pro- calcitonin level is 0.12. There is no chest x-ray on this patient. The patient is homeless. She apparently lives out of her van. Progress note dated 09/10/2021. 66-year-old female, seen yesterday in consultation. She has an extensive smoking history, who was admitted with a diagnosis of COPD exacerbation. She was producing hospitalized at [place], [place]. Currently, the patient is on saline at 75 mL an hour. She's getting oxygen via high flow nasal cannula at 10 L/m she is doing much better today. No new labs today other than a glucose of 167. She is currently on Pulmicort, formoterol, azithromycin, DuoNeb, and Solu-Medrol. Progress note dated 09/11/2021. 66-year-old female seen in consultation 2 days ago. She was admitted with a diagnosis of COPD exacerbation. She was initially admitted over at [facility]. She was transferred down. Currently, the patient is on 6 L nasal cannula. She's getting saline at 75 mL an hour. She is feeling better day by day. Her white count was 16.9, hemoglobin 11.1, hematocrit 36.1, and platelet count 313,000. Sodium 133, potassium 5, chloride 87, CO2 34, BUN 18.2 with a creatinine of 0.4. No recent chest x-ray to report. The patient was placed on Pulmicort, formoterol, azithromycin, DuoNeb, and Solu-Medrol. Objective - Vital Signs Vital signs: Vital Signs Temp 98.5 F 09/11/21 07:39 Pulse 90 09/11/21 12:00 Resp 18 09/11/21 12:00 BP 135/73 09/11/21 07:39 Pulse Ox 95 09/11/21 11:21 Intake & Output 09/10/21 09/11/21 09/11/21 18:59 06:59 18:59 Intake Total 2646 Balance 2646 Intake: Intake, IV Titration 1250 Amount Azithromycin 500 mg In 250 Sodium Chloride 0.9% 250 ml @ 250 mls/hr IVPB DAILY [facility] Rx#:[id number] Sodium Chloride 0.9% 1, 1000 000 ml @ 75 mls/hr IV . [id number] [facility] Rx#:[id number] Oral 1396 Other: Voiding Method Bedside Commode Bedside Commode Bedside Commode # Voids 3 3 - Exam Mild respiratory distress, oriented 3. The patient's saturations are 95% on 6 L high flow nasal O2. HEENT examination is grossly unremarkable. Neck supple. Full range of motion. No adenopathy thyromegaly or neck vein distention. Cardiovascular examination reveals regular rhythm rate. S1-S2 normal. No S3 or S4. No discernible murmur noted. Heart rate is 90 bpm. Heart sounds are distant. Lungs reveal inspiratory and expiratory wheezes and rhonchi. Breath sounds are equal bilaterally. No crackles. There is prolongation on forced maneuver. Adventitious lung sounds are more prominent on forced maneuver. Breath sounds are improved. Abdomen soft bowel sounds are heard. No masses or tenderness. Extremities are intact. No cyanosis clubbing or edema. Skin is without rash or lesion. Neurologic examination is brief but nonfocal. - Labs CBC & Chem 7: 09/11/21 05:41 09/11/21 05:41 Labs: Abnormal Lab Results - Last 24 Hours (Table) 09/10/21 09/10/21 09/11/21 Range/Units 16:43 20:49 05:41 WBC 16.93 H (4.50-10.00) X 10*3/uL RBC 3.79 L (4.10-5.20) X 10*6/uL Hgb 11.1 L (12.0-15.0) g/dL Hct 36.1 L (37.2-46.3) % MCHC 30.7 L (32.0-37.0) g/dL Immature Gran # 0.35 H (0.00-0.04) X 10*3/uL Neutrophils # 15.69 H (1.80-7.70) X 10*3/uL Lymphocytes # 0.27 L (0.90-5.00) X 10*3/uL Eosinophils # 0 L (0.04-0.35) X 10*3/uL Sodium (135-145) mmol/L Chloride (96-109) mmol/L Carbon Dioxide (20.0-27.5) mmol/L Creatinine (0.6-1.5) mg/dL BUN/Creatinine Ratio (12.00-20.00) Ratio Glucose (70-110) mg/dL POC Glucose (mg/dL) 146 H 187 H (75-99) mg/dL 09/11/21 09/11/21 09/11/21 Range/Units 05:41 07:01 11:23 WBC (4.50-10.00) X 10*3/uL RBC (4.10-5.20) X 10*6/uL Hgb (12.0-15.0) g/dL Hct (37.2-46.3) % MCHC (32.0-37.0) g/dL Immature Gran # (0.00-0.04) X 10*3/uL Neutrophils # (1.80-7.70) X 10*3/uL Lymphocytes # (0.90-5.00) X 10*3/uL Eosinophils # (0.04-0.35) X 10*3/uL Sodium 133 L (135-145) mmol/L Chloride 87 L (96-109) mmol/L Carbon Dioxide 34.3 H (20.0-27.5) mmol/L Creatinine 0.4 L (0.6-1.5) mg/dL BUN/Creatinine Ratio 43.13 H (12.00-20.00) Ratio Glucose 118 H (70-110) mg/dL POC Glucose (mg/dL) 108 H 155 H (75-99) mg/dL Assessment and Plan Assessment: Acute exacerbation of COPD. Ongoing tobacco use with nicotine addiction. Plan: Plan dated 09/09/2021. The labs are reviewed. I will order a chest x-ray. The medications are reviewed. We'll make sure, that the patient's on appropriate medications. This will include DuoNeb, 4 times a day and when necessary, 20 g, twice a day, and Solu-Medrol. Additional recommendations and suggestions are forthcoming. The pro-calcitonin level is relatively low. We will await the chest x-ray. Plan dated 09/10/2021. The patient remains on corticosteroids, breathing treatments, and oral antibiotics. The patient is doing well. She feels much better. I forcefully, her oxygen requirements are still high at 10 L. She's also getting saline at 75 mL an hour. We will continue to follow make recommendations where appropriate. We do teacher counselor her about the importance of smoking cessation. A nicotine patch might be helpful if she craves tobacco. The chest x-rays reviewed. Additional recommendations and suggestions are forthcoming. The chest x-ray shows chronic emphysematous changes, with some reticular nodular opacities at the lower lung saenz. I suspect most of the changes on chest x-ray are chronic. Plan dated 09/11/2021. The patient remains on appropriate medications including corticosteroids, breathing treatments, and antibiotics. She's been weaned down to 6 L nasal cannula. Yesterday she was on 10 L. She still receiving saline at 75 mL an hour. Her chest x-ray, and labs, are reviewed. No additional recommendations are made. Prognosis is guarded. The patient is counseled about the importance of smoking cessation. Time with Patient: Less than 30
[2021-09-11 16:46] LABS: Glucose,Whole Blood 175 mg/dL (75-99)
[2021-09-11] MEDS: SODIUM CHLORIDE 0.9% 1,000 ML IV SCH (17:25)
--- NOTE | 2021-09-11 18:35 | P.PN ---
Subjective This is a pleasant 66 years old female with past medical history of COPD not on home medication. Presents because of dyspnea [facility]. She is on 10 L oxygen via high flow nasal cannula when transferred. PCP is Dr. Mendoza Patient with a history of oxygen-dependent COPD multiple hospitalizations recently, currently on high flow oxygen 10 L for COPD exacerbation with CT evidence of pneumonia, patient received antibiotic in outpatient setting, homeless, she's been prescribed home oxygen but has been living out of a vehicle for has been noncompliant with home oxygen Patient is lying in bed does not look in respiratory distress but she is on high flow oxygen at 2 L/m, no significant tachypnea while at rest, she is coughing with occasional phlegm. She complains earlier from central chest tenderness but now she is chest pain-free No diarrhea abdominal pain or vomiting. No urinary complaints. No headache or weakness or dizziness. She has good appetite She used to smoke half pack per day and she just quit recently. She denies alcohol. She uses marijuana as well Patient states that she was not on oxygen at home and her problem started sometime after Thanksgiving and she is not on home oxygen originally, she does not follow up with chief of police but she stated that she has history of COPD. As per transfer paper patient was discharge from [facility] to [facility] but she sent back to the emergency room of [place] at the same day for worsening dyspnea. As per [place] patient saturates 86-88% on room air. She was saturating well on 6 L but she was transitioned to high flow nasal cannula due to increased work of breathing and oxygen requirements. at [facility] she received IV Solu-Medrol, magnesium, February of this and albuterol treatment patient was showing mild improvement and she was doing well on 6 L NC but was transitioned to high flow nasal cannula due to increased work of breathing and oxygen requirements per records. to CTA of the chest done on 09/07/2021 report states no acute PE, diffuse tree-in-bud pattern opacity with left lower lobe consolidation Also patient was given IV Levaquin and Zithromax. Patient was admitted with COPD exacerbation and hypoxia and later on transferred to [facility] Currently vitals stable at course except for hypoxia she is on 10 L high flow nasal cannula was saturating 93% A EKG showed normal sinus rhythm at [address]-T changes, and QTC 413 In reviewing [place] transferring paper: Labs showed sodium 130, potassium 4.8, creatinine 0.6, liver enzymes did not 6 difficult currently elevated, AST normal 21 and ALT slightly up at 44, total bilirubin 0.4, albumin 3.0. GFR is 1:30. Troponin less than 0.012. Lactic acid 2.1, magnesium 2.1. WBC 9.7, hemoglobin 11.3, platelets 275. D-dimer slightly elevated 1.2. However repeat WBC from 09/07 increased to 26.4. Hemoglobin 12.7 INR is 0.9 ABG showing pH of 7.5, the CO2 50 which is within the reference range and high P O2 at 67.9. Which was done and 6 L nasal cannula 09/09/2021 Chin starts showing slight improvement in her breathing however she still tachypneic and dyspneic while she is sitting. She still on 10 L/m of oxygen via nasal cannula Chest x-ray: Chronic emphysematous change with increased reticulonodular opacity bilaterally greatest in the lower lungs with posterior basilar consolidation R redemonstrated. Correlate clinically for atypical infectious process by radiologist continue with IV Solu-Medrol and decrease dose to 60 mg Change antibiotics from Zosyn and to Zithromax as repeat chest x-ray showing possible atypical pneumonia. And broughtcalcitonin is only 0.12 which is only minimally elevated. ProBNP is 591 09/10/2021 Patient feels anxious today from her steroids although reports improvement in her breathing treatment. To some degree but she still wheezing and she still have limited air entry on both sides although improving. She still on the liter per minute of oxygen but saturation is in high 90s for example 97% so she might be able to be tapered down. No labs from today. However that she is hemodynamically stable. She remains on Solu-Medrol 60 mg and Zithromax. We will add Xanax to help her with anxiety 09/11/21 patient admitted with acute COPD exacerbation she was placed on Solu-Medrol 60 mg as well as Zithromax for possible atypical pneumonia and today she is showing significant improvement and her oxygen requirement dropped from 10 down to 5 L/m. She is less jittery after given her Xanax. Sodium also improved up to 133 therefore we lower in her normal saline to 50 mL/h. Objective - Vital Signs Vital signs: Vital Signs Temp 98.5 F 09/11/21 07:39 Pulse 90 09/11/21 11:51 Resp 18 09/11/21 11:51 BP 135/73 09/11/21 07:39 Pulse Ox 95 09/11/21 11:21 Intake & Output 09/10/21 09/11/21 09/11/21 18:59 06:59 18:59 Intake Total 2646 Balance 2646 Intake: Intake, IV Titration 1250 Amount Azithromycin 500 mg In 250 Sodium Chloride 0.9% 250 ml @ 250 mls/hr IVPB DAILY [facility] Rx#:[id number] Sodium Chloride 0.9% 1, 1000 000 ml @ 75 mls/hr IV . [id number] [facility] Rx#:[id number] Oral 1396 Other: Voiding Method Bedside Commode Bedside Commode Bedside Commode # Voids 3 3 - Exam GENERAL: The patient is alert and oriented x3, not in any acute distress. Well developed, well nourished. HEENT: Pupils are round and equally reacting to light. EOMI. No scleral icterus. No conjunctival pallor. Normocephalic, atraumatic. No pharyngeal erythema. No thyromegaly. CARDIOVASCULAR: S1 and S2 present. No murmurs, rubs, or gallops. -PULMONARY: Decreased air entry in both sides with scattered bilateral wheezing ABDOMEN: Soft, nontender, nondistended, normoactive bowel sounds. No palpable organomegaly. MUSCULOSKELETAL: No joint swelling or deformity. EXTREMITIES: No cyanosis, clubbing, or pedal edema. NEUROLOGICAL: Gross neurological examination did not reveal any focal deficits. SKIN: No rashes. no petechiae. - Labs CBC & Chem 7: 09/11/21 05:41 09/11/21 05:41 Labs: Abnormal Lab Results - Last 24 Hours (Table) 09/10/21 09/10/21 09/11/21 Range/Units 16:43 20:49 05:41 WBC 16.93 H (4.50-10.00) X 10*3/uL RBC 3.79 L (4.10-5.20) X 10*6/uL Hgb 11.1 L (12.0-15.0) g/dL Hct 36.1 L (37.2-46.3) % MCHC 30.7 L (32.0-37.0) g/dL Immature Gran # 0.35 H (0.00-0.04) X 10*3/uL Neutrophils # 15.69 H (1.80-7.70) X 10*3/uL Lymphocytes # 0.27 L (0.90-5.00) X 10*3/uL Eosinophils # 0 L (0.04-0.35) X 10*3/uL Sodium (135-145) mmol/L Chloride (96-109) mmol/L Carbon Dioxide (20.0-27.5) mmol/L Creatinine (0.6-1.5) mg/dL BUN/Creatinine Ratio (12.00-20.00) Ratio Glucose (70-110) mg/dL POC Glucose (mg/dL) 146 H 187 H (75-99) mg/dL 09/11/21 09/11/21 09/11/21 Range/Units 05:41 07:01 11:23 WBC (4.50-10.00) X 10*3/uL RBC (4.10-5.20) X 10*6/uL Hgb (12.0-15.0) g/dL Hct (37.2-46.3) % MCHC (32.0-37.0) g/dL Immature Gran # (0.00-0.04) X 10*3/uL Neutrophils # (1.80-7.70) X 10*3/uL Lymphocytes # (0.90-5.00) X 10*3/uL Eosinophils # (0.04-0.35) X 10*3/uL Sodium 133 L (135-145) mmol/L Chloride 87 L (96-109) mmol/L Carbon Dioxide 34.3 H (20.0-27.5) mmol/L Creatinine 0.4 L (0.6-1.5) mg/dL BUN/Creatinine Ratio 43.13 H (12.00-20.00) Ratio Glucose 118 H (70-110) mg/dL POC Glucose (mg/dL) 108 H 155 H (75-99) mg/dL Assessment and Plan Assessment: Acute COPD exacerbation Possible Atypical pneumonia Acute hypoxic respiratory failure Mild protein calorie malnutrition. Substance abuse with marijuana Plan: This is a pleasant 66 years old female who presents with COPD, pneumonia Continue with IV Solu-Medrol Change Zosyn to Zithromax Follow-up sputum culture of possible Pulmonary consult [employer] consult Labs and medication were reviewed.. Continue same treatment. Continue with symptomatic treatment. Resume home medication. Monitor lytes and vitals. DVT and GI prophylaxis. Further recommendations depends on the clinical course of the patient DVT prophylaxis: Subcutaneous heparin GI Prophylaxis: Pepcid PT/OT: Pending Prognosis is guarded
[2021-09-11 20:48] LABS: Glucose,Whole Blood 143 mg/dL (75-99)
[2021-09-12] MEDS: methylPREDNISolone SOD SUCCI 125 MG/2 ML VIAL IV SCH ×2 (05:31→11:08)
[2021-09-12] MEDS: SODIUM CHLORIDE 0.9% 1,000 ML IV SCH ×2 (05:59→11:08)
[2021-09-12 06:57] LABS: Glucose,Whole Blood 112 mg/dL (75-99)
[2021-09-12] MEDS: INSULIN ASPART (NovoLOG) 100 UNIT/ML VIAL SQ SCH ×4 (07:17→21:36)
[2021-09-12] MEDS: FORMOTEROL FUMARATE 20 MCG/2 ML NEBU INHALATION SCH ×2 (08:51→19:28)
[2021-09-12] MEDS: IPRATROPIUM-ALBUTEROL 3 ML NEB INHALATION PRN ×3 (08:51→19:28)
[2021-09-12] MEDS: BUDESONIDE 1 MG/2 ML NEBU INHALATION SCH ×2 (08:52→19:28)
[2021-09-12 09:20] LABS: African American GFR (CKD) 124.9 (60.0-200.0); Anion Gap 7.8 mmol/L (10.00-18.00); BUN/Creat Ratio 47.75 Ratio (12.00-20.00); Basophils # (A) 0.04 X 10*3/uL (0.00-0.10); Basophils % (A) 0.3 %; Blood Urea Nitrogen 19.1 mg/dL (9.0-27.0); Calcium 8.8 mg/dL (8.7-10.3); Carbon Dioxide 35.2 mmol/L (20.0-27.5); Eosinophils # (A) 0 X 10*3/uL (0.04-0.35); Eosinophils % (A) 0 %; HCT 34.6 % (37.2-46.3); HGB 10.5 g/dL (12.0-15.0); Lymphocytes # (A) 0.28 X 10*3/uL (0.90-5.00); Lymphocytes % (A) 1.9 %; MCHC 30.3 g/dL (32.0-37.0); MCV 95.6 fL (80.0-97.0); Mean Platelet Volume 10.1 fL (9.5-12.2); Monocytes # (A) 0.69 X 10*3/uL (0.20-1.00); Monocytes % (A) 4.7 %; Neutrophils # (A) 13.44 X 10*3/uL (1.80-7.70); Non-African American GFR(CKD) 107.8 (60.0-200.0); Platelet Count 324 X 10*3/uL (140-440); RBC 3.62 X 10*6/uL (4.10-5.20); RDW 13.6 % (11.5-14.5); WBC 14.76 X 10*3/uL (4.50-10.00)
[2021-09-12] MEDS: FAMOTIDINE 20 MG TAB PO SCH ×4 (09:46→21:38)
[2021-09-12] MEDS: HEPARIN SODIUM,PORCINE/PF 5,000 UNIT/0.5 ML SYRINGE SQ SCH ×2 (09:47→21:36)
[2021-09-12] MEDS: AZITHROMYCIN 500 MG TAB PO SCH (09:47)
[2021-09-12] MEDS: NICOTINE 14MG/24HR PATCH TRANSDERM SCH (09:47)
[2021-09-12 11:34] LABS: Glucose,Whole Blood 140 mg/dL (75-99)
--- NOTE | 2021-09-12 13:07 | P.PN ---
Subjective Progress Note Date: 09/12/21 Principal diagnosis: Shortness of breath On 09/12/2021 patient seen in follow-up on medical surgical floor, she is breathing currently, she sits up in the recliner, she is currently not wearing any oxygen, earlier today her pulse ox was 95% on 5 L, she states her breathing is improving, she's been afebrile, no acute events overnight, she's had no fever or chills, no complaints of chest discomfort. No signs of any acute respiratory distress, she states she is hoping to be able to go back to the [facility] in [place]. Objective - Vital Signs Vital signs: Vital Signs Temp 98.4 F 09/12/21 07:32 Pulse 90 09/12/21 09:12 Resp 18 09/12/21 09:12 BP 174/80 09/12/21 07:32 Pulse Ox 94 L 09/12/21 07:32 Intake & Output 09/11/21 09/12/21 09/12/21 18:59 06:59 18:59 Intake Total 1200 Output Total 700 Balance 500 Intake: Intake, IV Titration 600 Amount Sodium Chloride 0.9% 1, 600 000 ml @ 50 mls/hr IV . Q20H [facility] Rx#:[id number] Oral 600 Output: Urine 700 Other: Voiding Method Bedside Commode Bedside Commode Bedside Commode # Voids 4 1 - Exam GENERAL EXAM: Alert, very pleasant 66-year-old white female, currently on 5 L of oxygen pulse ox of 94-95% comfortable in no apparent distress. HEAD: Normocephalic/atraumatic. EYES: Normal reaction of pupils, equal size. Conjunctiva pink, sclera white. NOSE: Clear with pink turbinates. THROAT: No erythema or exudates. NECK: No masses, no JVD, no thyroid enlargement, no adenopathy. CHEST: No chest wall deformity. Symmetrical expansion. LUNGS: Equal air entry with diminished breath sounds CVS: Regular rate and rhythm, normal S1 and S2, no gallops, no murmurs, no rubs ABDOMEN: Soft, nontender. No hepatosplenomegaly, normal bowel sounds, no guarding or rigidity. EXTREMITIES: No clubbing, no edema, no cyanosis, 2+ pulses and upper and lower extremities. MUSCULOSKELETAL: Muscle strength and tone normal. SPINE: No scoliosis or deformity SKIN: No rashes CENTRAL NERVOUS SYSTEM: Alert and oriented -3. No focal deficits, tone is normal in all 4 extremities. PSYCHIATRIC: Alert and oriented -3. Appropriate affect. Intact judgment and insight. - Labs CBC & Chem 7: 09/12/21 03:21 09/12/21 03:21 Labs: Abnormal Lab Results - Last 24 Hours (Table) 09/11/21 09/11/21 09/12/21 Range/Units 16:45 20:46 03:21 WBC 14.76 H (4.50-10.00) X 10*3/uL RBC 3.62 L (4.10-5.20) X 10*6/uL Hgb 10.5 L (12.0-15.0) g/dL Hct 34.6 L (37.2-46.3) % MCHC 30.3 L (32.0-37.0) g/dL Immature Gran # 0.31 H (0.00-0.04) X 10*3/uL Neutrophils # 13.44 H (1.80-7.70) X 10*3/uL Lymphocytes # 0.28 L (0.90-5.00) X 10*3/uL Eosinophils # 0 L (0.04-0.35) X 10*3/uL Sodium (135-145) mmol/L Chloride (96-109) mmol/L Carbon Dioxide (20.0-27.5) mmol/L Anion Gap (10.00-18.00) mmol/L Creatinine (0.6-1.5) mg/dL BUN/Creatinine Ratio (12.00-20.00) Ratio Glucose (70-110) mg/dL POC Glucose (mg/dL) 175 H 143 H (75-99) mg/dL 09/12/21 09/12/21 09/12/21 Range/Units 03:21 06:56 11:32 WBC (4.50-10.00) X 10*3/uL RBC (4.10-5.20) X 10*6/uL Hgb (12.0-15.0) g/dL Hct (37.2-46.3) % MCHC (32.0-37.0) g/dL Immature Gran # (0.00-0.04) X 10*3/uL Neutrophils # (1.80-7.70) X 10*3/uL Lymphocytes # (0.90-5.00) X 10*3/uL Eosinophils # (0.04-0.35) X 10*3/uL Sodium 132 L (135-145) mmol/L Chloride 89 L (96-109) mmol/L Carbon Dioxide 35.2 H (20.0-27.5) mmol/L Anion Gap 7.80 L (10.00-18.00) mmol/L Creatinine 0.4 L (0.6-1.5) mg/dL BUN/Creatinine Ratio 47.75 H (12.00-20.00) Ratio Glucose 141 H (70-110) mg/dL POC Glucose (mg/dL) 112 H 140 H (75-99) mg/dL Assessment and Plan Plan: Assessment: #1. Acute exacerbation of COPD. Patient is negative for COVID-19 #2. Acute hypoxic respiratory failure related to the above #3. Rule out possibility of atypical pneumonia, but Protonix on level was negative #4. Substance abuse with marijuana #5. History of smoking Plan: Breathing is improving FiO2 is being weaned and patient is currently on 5 L of oxygen She is tolerating ambulation, vital signs have been stable Possible discharge to [facility]CF today or next 24 hours Patient can complete prednisone taper antibiotics and can continue on breathing treatments and inhalers on an outpatient basis I performed a history & physical examination of the patient and discussed their management with my nurse practitioner, Irish Choudhury. I reviewed the nurse practitioner's note and agree with the documented findings and plan of care. Lung sounds are positive for dim breath sound throughout the lung saenz. The findings and the impression was discussed with the patient. I attest to the documentation by the nurse practitioner. Time with Patient: Less than 30
--- NOTE | 2021-09-12 15:39 | P.DS ---
Providers Date of admission: 09/08/21 04:36 Attending physician: Nikita Llamas Consults: 09/08/21 08:34 Consult Physician Urgent Consulting Provider: Nate Oleary Consult Reason/Comments: Pneumonia, tree in bud in ct of chest Do you want consulting provider notified?: Yes Primary care physician: Don Mendoza [facility] Course: Diagnoses: Acute COPD exacerbation Possible Atypical pneumonia Acute hypoxic respiratory failure Mild protein calorie malnutrition. Substance abuse with marijuana Hospital course: This is a pleasant 66 years old female with past medical history of COPD not on home medication. Presents because of dyspnea [facility]. She is on 10 L oxygen via high flow nasal cannula when transferred. PCP is Dr. Mendoza Patient with a history of oxygen-dependent COPD multiple hospitalizations recently, currently on high flow oxygen 10 L for COPD exacerbation with CT evidence of pneumonia, patient received antibiotic in outpatient setting, homeless, she's been prescribed home oxygen but has been living out of a vehicle for has been noncompliant with home oxygen She presents this time with respiratory distress and hypoxia, she states that at baseline she uses 5 L/m at home nasal cannula however on the presentation she was on 10 L/m which was recently increased prior to hospitalization from a different facility. She was wheezing with decreased air entry on both sides. Patient has been found to have bilateral atypical pneumonia and COPD. She's been evaluated by pulmonary service, she's been treated with IV Solu-Medrol, Zithromax and normal saline at 50 ml per hour. Her portcalcitonin was only 0.12. Patient patient showed interval improvement and her breathing become easier and less dyspneic. Her oxygen requirements back to her baseline of about 4-5 L/m the nasal cannula. Her IV Solu-Medrol switched to prednisone and patient was cleared for discharge today by pulmonary service She will be discharged on tapering steroids and 2 more days of Zithromax to finish his antibiotic course On the day of discharge she denies chest pain or coughing. No abdominal pain. She able to tolerate her diet 50-75%. No urinary complaints. No headache or fever. Problems and management plan were discussed with the patient and he verbalized understanding and acceptance Patient was found stable and can be discharged home however he needs follow-up as an outpatient. Patient was instructed to follow up with PCP Dr. Mendoza within one week and patient agrees Physical exam Gen: patient is a AAOx3, no distress CVS: S1-S2, RRR, no murmur Lungs: B/L CTA, Scattered wheezing bilaterally Abdomen: soft, no distention, no tenderness, positive bowel sounds Extremity: no leg edema or induration Time spent more than 35 minutes Patient Condition at Discharge: Serious Plan - Discharge Summary New Discharge Prescriptions: No Action Levothyroxine Sodium [Synthroid] 25 mcg PO DAILY Budesonide-Formot 160-4.5 Mcg [Symbicort 160-4.5 Mcg Inhaler] 2 puff INHALATION RT-BID Albuterol Sulfate [Albuterol Sulfate Hfa] 2 puff PO RT-Q4H PRN PRN Reason: Shortness Of Breath Losartan [Cozaar] 50 mg PO DAILY Discharge Medication List Albuterol Sulfate [Albuterol Sulfate Hfa] 2 puff PO RT-Q4H PRN 09/08/21 [History] Budesonide-Formot 160-4.5 Mcg [Symbicort 160-4.5 Mcg Inhaler] 2 puff INHALATION RT-BID 09/08/21 [History] Levothyroxine Sodium [Synthroid] 25 mcg PO DAILY 09/08/21 [History] Losartan [Cozaar] 50 mg PO DAILY 09/08/21 [History] Follow up Appointment(s)/Referral(s): Don Mendoza DO [Primary Care Provider] - 1-2 days
[2021-09-12 16:34] LABS: Glucose,Whole Blood 142 mg/dL (75-99)
[2021-09-12 21:19] LABS: Glucose,Whole Blood 219 mg/dL (75-99)
[2021-09-13 03:13] VITALS: RESP 18
[2021-09-13 07:06] LABS: Glucose,Whole Blood 66 mg/dL (75-99)
[2021-09-13] MEDS: FORMOTEROL FUMARATE 20 MCG/2 ML NEBU INHALATION SCH (07:40)
[2021-09-13] MEDS: IPRATROPIUM-ALBUTEROL 3 ML NEB INHALATION PRN (07:40)
[2021-09-13] MEDS: BUDESONIDE 1 MG/2 ML NEBU INHALATION SCH (07:40)
[2021-09-13] MEDS: INSULIN ASPART (NovoLOG) 100 UNIT/ML VIAL SQ SCH ×2 (08:05→12:25)
[2021-09-13 08:12] VITALS: BP 174/82; PULSE 83; TEMP 98.3
[2021-09-13] MEDS: HEPARIN SODIUM,PORCINE/PF 5,000 UNIT/0.5 ML SYRINGE SQ SCH (08:58)
[2021-09-13] MEDS: AZITHROMYCIN 500 MG TAB PO SCH (08:58)
[2021-09-13] MEDS: FAMOTIDINE 20 MG TAB PO SCH ×2 (08:59→09:00)
[2021-09-13] MEDS: NICOTINE 14MG/24HR PATCH TRANSDERM SCH (08:59)
[2021-09-13] MEDS ORDERED: predniSONE 20 MG TAB PO SCH (09:00)
[2021-09-13 09:01] LABS: Glucose,Whole Blood 93 mg/dL (75-99)
--- NOTE | 2021-09-13 10:41 | P.DS ---
Providers Date of admission: 09/08/21 04:36 Attending physician: Nikita Llamas Consults: 09/08/21 08:34 Consult Physician Urgent Consulting Provider: Nate Oleary Consult Reason/Comments: Pneumonia, tree in bud in ct of chest Do you want consulting provider notified?: Yes Primary care physician: Don Mendoza [facility] Course: Diagnoses: Acute COPD exacerbation Possible Atypical pneumonia Acute hypoxic respiratory failure Mild protein calorie malnutrition. Substance abuse with marijuana Hospital course: This is a pleasant 66 years old female with past medical history of COPD not on home medication. Presents because of dyspnea [facility]. She is on 10 L oxygen via high flow nasal cannula when transferred. PCP is Dr. Mendoza Patient with a history of oxygen-dependent COPD multiple hospitalizations recently, currently on high flow oxygen 10 L for COPD exacerbation with CT evidence of pneumonia, patient received antibiotic in outpatient setting, homeless, she's been prescribed home oxygen but has been living out of a vehicle for has been noncompliant with home oxygen She presents this time with respiratory distress and hypoxia, she states that at baseline she uses 5 L/m at home nasal cannula however on the presentation she was on 10 L/m which was recently increased prior to hospitalization from a different facility. She was wheezing with decreased air entry on both sides. Patient has been found to have bilateral atypical pneumonia and COPD. She's been evaluated by pulmonary service, she's been treated with IV Solu-Medrol, Zithromax and normal saline at 50 ml per hour. Her portcalcitonin was only 0.12. Patient patient showed interval improvement and her breathing become easier and less dyspneic. Her oxygen requirements back to her baseline of about 4-5 L/m the nasal cannula. Her IV Solu-Medrol switched to prednisone and patient was cleared for discharge today by pulmonary service She will be discharged on tapering steroids and 2 more days of Zithromax to finish his antibiotic course On the day of discharge she denies chest pain or coughing. No abdominal pain. She able to tolerate her diet 50-75%. No urinary complaints. No headache or fever. Problems and management plan were discussed with the patient and he verbalized understanding and acceptance Patient was found stable and can be discharged home however he needs follow-up as an outpatient. Patient was instructed to follow up with PCP Dr. Mendoza within one week and patient agrees Physical exam Gen: patient is a AAOx3, no distress CVS: S1-S2, RRR, no murmur Lungs: B/L CTA, Scattered wheezing bilaterally Abdomen: soft, no distention, no tenderness, positive bowel sounds Extremity: no leg edema or induration Time spent more than 35 minutes Patient Condition at Discharge: Serious Plan - Discharge Summary New Discharge Prescriptions: New Ipratropium-Albuterol Nebulize [Duoneb 0.5 mg-3 mg/3 ml Soln] 3 ml INHALATION RT-QID PRN ml PRN Reason: Shortness Of Breath Or Wheezing Nicotine 14Mg/24Hr Patch [Habitrol] 1 patch TRANSDERM DAILY patch INSULIN ASPART (NovoLOG) [NovoLOG (formulary)] 0 unit SQ ACHS ml Famotidine [Pepcid] 20 mg PO BID tab Budesonide [Pulmicort] 1 mg INHALATION RT-BID ml Acetaminophen Tab [Tylenol] 650 mg PO Q6HR PRN tab PRN Reason: Mild Pain Or Fever > 100.5 Melatonin 3 mg PO HS PRN tablet PRN Reason: Insomnia Formoterol Fumarate [Perforomist] 20 mcg INHALATION RT-BID ml predniSONE 10 mg PO DIRECTED #40 tab Azithromycin [Zithromax] 500 mg PO DAILY 2 Days #2 tab Continue Levothyroxine Sodium [Synthroid] 25 mcg PO DAILY Budesonide-Formot 160-4.5 Mcg [Symbicort 160-4.5 Mcg Inhaler] 2 puff INHALA TION RT-BID Albuterol Sulfate [Albuterol Sulfate Hfa] 2 puff PO RT-Q4H PRN PRN Reason: Shortness Of Breath Losartan [Cozaar] 50 mg PO DAILY Discharge Medication List Albuterol Sulfate [Albuterol Sulfate Hfa] 2 puff PO RT-Q4H PRN 09/08/21 [History] Budesonide-Formot 160-4.5 Mcg [Symbicort 160-4.5 Mcg Inhaler] 2 puff INHALATION RT-BID 09/08/21 [History] Levothyroxine Sodium [Synthroid] 25 mcg PO DAILY 09/08/21 [History] Losartan [Cozaar] 50 mg PO DAILY 09/08/21 [History] Acetaminophen Tab [Tylenol] 650 mg PO Q6HR PRN tab 09/12/21 [Rx] Azithromycin [Zithromax] 500 mg PO DAILY 2 Days #2 tab 09/12/21 [Rx] Budesonide [Pulmicort] 1 mg INHALATION RT-BID ml 09/12/21 [Rx] Famotidine [Pepcid] 20 mg PO BID tab 09/12/21 [Rx] Formoterol Fumarate [Perforomist] 20 mcg INHALATION RT-BID ml 09/12/21 [Rx] INSULIN ASPART (NovoLOG) [NovoLOG (formulary)] 0 unit SQ ACHS ml 09/12/21 [Rx] Ipratropium-Albuterol Nebulize [Duoneb 0.5 mg-3 mg/3 ml Soln] 3 ml INHALATION RT-QID PRN ml 09/12/21 [Rx] Melatonin 3 mg PO HS PRN tablet 09/12/21 [Rx] Nicotine 14Mg/24Hr Patch [Habitrol] 1 patch TRANSDERM DAILY patch 09/12/21 [Rx] predniSONE 10 mg PO DIRECTED #40 tab 09/12/21 [Rx] Follow up Appointment(s)/Referral(s): Nate Oleary DO [Doctor of Osteopathic Medicine] - 10/04/21 1:15 pm Don Mendoza DO [Primary Care Provider] - 1-2 days Activity/Diet/Wound Care/Special Instructions: Low carbohydrate diet 1600 kcal per day Activity as tolerated Discharge Disposition: TRANSFER TO SNF/ECF
[2021-09-13 11:26] LABS: Glucose,Whole Blood 97 mg/dL (75-99)
--- NOTE | 2021-09-13 13:51 | P.PN ---
Subjective Progress Note Date: 09/13/21 Principal diagnosis: Shortness of breath On 09/12/2021 patient seen in follow-up on medical surgical floor, she is breathing currently, she sits up in the recliner, she is currently not wearing any oxygen, earlier today her pulse ox was 95% on 5 L, she states her breathing is improving, she's been afebrile, no acute events overnight, she's had no fever or chills, no complaints of chest discomfort. No signs of any acute respiratory distress, she states she is hoping to be able to go back to the ECF in [place]. On 09/13/2021 patient is seen in follow-up on medical surgical floor, she has awake and alert, in no acute distress, she is improving, breathing easier, she is currently on 4 L of oxygen her pulse ox 90 percent, afebrile, vital signs have been stable, no fever or chills. No chest discomfort, no worsening dyspnea or cough. Patient is being discharged to [facility] today. Objective - Vital Signs Vital signs: Vital Signs Temp 98.3 F 09/13/21 08:00 Pulse 83 09/13/21 08:00 Resp 18 09/13/21 08:00 BP 174/82 09/13/21 08:00 Pulse Ox 90 L 09/13/21 08:00 Intake & Output 09/12/21 09/13/21 09/13/21 18:59 06:59 18:59 Other: Voiding Method Bedside Commode Bedside Commode # Voids 4 - Exam GENERAL EXAM: Alert, very pleasant 66-year-old white female, currently on 4 L of oxygen pulse ox of 90% comfortable in no apparent distress. HEAD: Normocephalic/atraumatic. EYES: Normal reaction of pupils, equal size. Conjunctiva pink, sclera white. NOSE: Clear with pink turbinates. THROAT: No erythema or exudates. NECK: No masses, no JVD, no thyroid enlargement, no adenopathy. CHEST: No chest wall deformity. Symmetrical expansion. LUNGS: Equal air entry with diminished breath sounds CVS: Regular rate and rhythm, normal S1 and S2, no gallops, no murmurs, no rubs ABDOMEN: Soft, nontender. No hepatosplenomegaly, normal bowel sounds, no guarding or rigidity. EXTREMITIES: No clubbing, no edema, no cyanosis, 2+ pulses and upper and lower extremities. MUSCULOSKELETAL: Muscle strength and tone normal. SPINE: No scoliosis or deformity SKIN: No rashes CENTRAL NERVOUS SYSTEM: Alert and oriented -3. No focal deficits, tone is normal in all 4 extremities. PSYCHIATRIC: Alert and oriented -3. Appropriate affect. Intact judgment and insight. - Labs CBC & Chem 7: 09/12/21 03:21 09/12/21 03:21 Labs: Abnormal Lab Results - Last 24 Hours (Table) 09/12/21 09/12/21 09/13/21 Range/Units 16:33 21:17 07:05 POC Glucose (mg/dL) 142 H 219 H 66 L (75-99) mg/dL Assessment and Plan Plan: Assessment: #1. Acute exacerbation of COPD, clinically improving Patient is negative for COVID-19 #2. Acute hypoxic respiratory failure related to the above #3. Rule out possibility of atypical pneumonia, but Protonix on level was negative #4. Substance abuse with marijuana #5. History of smoking Plan: Patient has remained stable in the last 24 hours Breathing is improving FiO2 is being weaned and patient is currently on 4 L of oxygen No acute events overnight, vital signs have been stable Stable for discharge to [facility] today from pulmonary perspective I performed a history & physical examination of the patient and discussed their management with my nurse practitioner, Irish Choudhury. I reviewed the nurse practitioner's note and agree with the documented findings and plan of care. Lung sounds are positive for dim breath sound throughout the lung saenz. The findings and the impression was discussed with the patient. I attest to the doc umentation by the nurse practitioner. Time with Patient: Less than 30
== END 2021-09-13 14:10 | DRG 177 ==
LOC: EC 00:17 → 4SSUR 04:36
PROVIDERS: ADMIT Hospitalist; ATTEND Hospitalist
PROC: 5A0 Extracorporeal or Systemic Assistance and Performance, Physiological Systems, Assistance (ICD-10-PCS; principal; 2021-09-08)
DX: J15.6 Pneumonia due to other Gram-negative bacteria (principal); J96.22 Acute and chronic respiratory failure with hypercapnia; J96.21 Acute and chronic respiratory failure with hypoxia; J44.1 Chronic obstructive pulmonary disease with (acute) exacerbation; E44.0 Moderate protein-calorie malnutrition; J44.0 Chronic obstructive pulmonary disease with (acute) lower respiratory infection; Z68.20 Body mass index [BMI] 20.0-20.9, adult; F17.200 Nicotine dependence, unspecified, uncomplicated; F41.9 Anxiety disorder, unspecified; Z20.822 Contact with and (suspected) exposure to COVID-19; Y95 Nosocomial condition; Z59.00 Homelessness unspecified; Z79.51 Long term (current) use of inhaled steroids; Z79.890 Hormone replacement therapy; Z79.899 Other long term (current) drug therapy; Z91.19 Patient's noncompliance with other medical treatment and regimen; Z99.81 Dependence on supplemental oxygen
CPT/HCPCS: 71046; 80048; 80053; 83735; 83880; 84145; 85025; 87635; 93005; 94640; 94760; 99285

== ENCOUNTER → 2021-10-07 | Outpatient (CLI) | payer MEDICARE ==
--- NOTE | 2021-10-07 19:22 | XR ---
EXAMINATION TYPE: XR chest 2V DATE OF EXAM: 10/07/2021 COMPARISON: 09/09/2021 HISTORY: 66-year-old female J449, COPD, shortness of breath TECHNIQUE: Frontal and lateral views FINDINGS: Heart normal size. Atherosclerotic arch calcifications. Some mild patchy right upper lobe opacity. Hy perinflation. No definite consolidation or pleural effusion. IMPRESSION: COPD with some subtle focal right upper lobe opacity could represent atelectasis or early infiltrate. Given patient's increased risk for development of lung cancer, recommend CT of the chest to exclude underlying pulmonary nodule.
== END | disposition home or self-care (01) ==
LOC: RADXRYALE 14:28
PROVIDERS: ATTEND Physician Assistant Medical
DX: J44.9 Chronic obstructive pulmonary disease, unspecified (principal)
CPT/HCPCS: 71046

== ENCOUNTER → 2022-01-10 | Outpatient (CLI) | payer MEDICARE ==
--- NOTE | 2022-01-11 14:06 | XR ---
EXAMINATION TYPE: XR wrist complete BILATERAL DATE OF EXAM: 01/11/2022 COMPARISON: None available INDICATION: Bilateral wrist pain and swelling for 2 months. TECHNIQUE: 3 views of each wrist joint. FINDINGS: Diffuse osteopenia. Questionable subtle sclerotic line superimposed on the left scaphoid waist which could represent an artifact or a subtle nondisplaced chronic fracture. Please correlate clinically. Soft tissue swelling surrounding the wrist joints. No other significant bony or articular abnormality identified. IMPRESSION: Diffuse osteopenia. Questionable artifact versus subtle nondisplaced fracture of the left scaphoid wa ist, please correlate clinically.
== END | disposition home or self-care (01) ==
LOC: RADXRYALE 16:22
PROVIDERS: ATTEND Physician Assistant Medical
DX: M85.832 Other specified disorders of bone density and structure, left forearm (principal); M85.831 Other specified disorders of bone density and structure, right forearm

== ENCOUNTER → 2022-01-31 | Outpatient (CLI) | payer MEDICARE ==
--- NOTE | 2022-01-31 19:04 | XR ---
EXAMINATION TYPE: XR wrist complete LT DATE OF EXAM: 01/31/2022 COMPARISON: X-ray dated 01/10/2022 INDICATION: Follow-up TECHNIQUE: Standard 3 views of the left wrist joint. FINDINGS: Osteopenia. The previously described suspected scaphoid waist subtle nondisplaced fracture is again n oted, unchanged. Persistent soft tissue swelling mainly at the dorsum of the wrist joint. No other fracture line ident ified. IMPRESSION: As above.
== END | disposition home or self-care (01) ==
LOC: RADXRYALE 10:48
PROVIDERS: ATTEND Physician Assistant Medical
DX: M85.842 Other specified disorders of bone density and structure, left hand (principal); M79.89 Other specified soft tissue disorders

== ENCOUNTER → 2022-02-24 | Outpatient (CLI) | payer MEDICARE ==
--- NOTE | 2022-02-24 12:36 | XR ---
EXAMINATION TYPE: XR wrist complete LT DATE OF EXAM: 02/24/2022 CLINICAL HISTORY: Persistent pain. TECHNIQUE: Frontal, lateral and oblique images of the left wrist are obtained. COMPARISON: Left wrist x-ray January 31, 2022 FINDINGS: Demineralization is redemonstrated. Suboptimal evaluation without dedicated scaphoid view. Some sclerosis along the radial aspect of the distal portion of the scaphoid could reflect healing n ondisplaced fracture. Correlate clinically. Consider correlation with nuclear medicine bone scan. Car pal joint spaces otherwise are maintained. Overlying soft tissue is unremarkable. IMPRESSION: As above.
== END | disposition home or self-care (01) ==
LOC: RADXRYALE 11:11
PROVIDERS: ATTEND Physician Assistant Medical
DX: M89.8X4 Other specified disorders of bone, hand (principal)